=== PATIENT | female | born 1995 | race African-American/Black ===

== ENCOUNTER 2021-01-20 01:26 | Inpatient (IN) ==
[2021-01-20 02:07] LABS: Bacteria,Urine Occasional /HPF (Few); Bilirubin,Urine Negative (Negative); Blood, Urine Small mg/dL (Negative); Glucose,Urine (UA) Negative (Negative); Ketones,Urine Negative (Negative); Mucus,Urine Occasional /LPF (Occasional); Nitrite,Urine Negative (Negative); Protein,Urine Negative; RBC,Urine 32 /HPF (0-4); Squamous Epithelial Cell,Urine Occasional /HPF (0-10); Urine Appearance CLEAR (Clear); Urine Color Yellow (Yellow); Urine Specific Gravity 1.023 (1.001-1.035)
[2021-01-20] MEDS ORDERED: ACETAMINOPHEN 325 MG TABLET PO PRN ×2 (03:14→11:42)
[2021-01-20] MEDS ORDERED: LACTATED RINGERS 1,000 ML IV ONE ×2 (03:15→11:13)
[2021-01-20] MEDS ORDERED: LACTATED RINGERS 1,000 ML IV SCH ×2 (04:00→07:30)
[2021-01-20] MEDS ORDERED: MEPERIDINE 50 MG/1 ML VIAL IV PRN (07:10)
[2021-01-20] MEDS ORDERED: ONDANSETRON 4 MG/2 ML VIAL IV PRN ×2 (07:10→11:42)
[2021-01-20] MEDS ORDERED: BUTORPHANOL 2 MG/ML VIAL IV PRN (07:10)
[2021-01-20 08:16] LABS: Basophils # 0.1 10*3/uL (0.0-0.2); Basophils % 0.4 % (0.0-0.8); Eosinophils # 0.1 10*3/uL (0.0-0.87); Eosinophils % 1.1 % (0.00-10.9); Hematocrit 29.2 VOL% (35.7-47.0); Hemoglobin 9.2 GM/DL (12.0-16.0); Immature Granulocytes % 1.3 %; Immature Granulocytes Absolute 0.16 #; Lymphocytes # 2.1 10*3/uL (1.4-4.0); Lymphocytes % 17.8 % (21.3-54.2); Mean Corpuscular HGB Conc 31.5 GM/DL (32-36); Mean Corpuscular Volume 97.3 FL (87-102); Mean Platelet Volume 9.2 FL (9.6-12.0); Monocytes % 6.2 % (1.7-12.7); Neutrophils % 73.2 % (38.7-73.9); Platelet Count 283 T/CUMM (130-400); Red Cell Distribution Width 13.5 % (9.3-17.3)
[2021-01-20 08:35] LABS: Alanine Aminotransferase < 6 U/L (13-56); Albumin 2.5 G/DL (3.4-5.0); Alkaline Phosphatase 102 U/L (45-117); Aspartate Amino Transferase 11 U/L (0-37); Blood Urea Nitrogen 5 MG/DL (7-18); Calcium 8.5 MG/DL (8.5-10.1); Carbon Dioxide 22 MMOL/L (21-32); Estimated Glom Filtration Rate 198 ML/MIN; Glucose 84 MG/DL (74-106); Osmolality,Calculated 268.8 MOS/KG (273-304); Potassium 3.5 MMOL/L (3.5-5.1); Sodium 137 MMOL/L (136-145); Total Protein 6.3 G/DL (6.4-8.2)
[2021-01-20] MEDS ORDERED: ceFAZolin 2,000 MG/50 ML DUPLEX IV ONE (10:18)
[2021-01-20] MEDS ORDERED: miSOPROStoL 200 MCG TABLET ONE (10:18)
[2021-01-20] MEDS ORDERED: FAMOTIDINE 20 MG/2 ML VIAL IV ONE (10:18)
[2021-01-20] MEDS ORDERED: METHYLERGONOVINE 0.2 MG/1 ML AMP ONE (10:18)
[2021-01-20] MEDS ORDERED: CITRIC ACID/SODIUM CITRATE 30 ML UDCUP PO ONE (10:18)
[2021-01-20] MEDS ORDERED: TRANEXAMIC ACID 1,000 MG/10 ML VIAL ONE (10:18)
[2021-01-20] MEDS ORDERED: CARBOPROST TROMETHAMINE 250 MCG/ML AMP IM ONE (10:19)
[2021-01-20] MEDS ORDERED: OXYTOCIN/LR 20 UNIT/1,000 ML BAG IV ONE ×2 (10:20→11:42)
[2021-01-20] MEDS ORDERED: SODIUM CHLORIDE 0.9% 0 ML IV ONE (10:20)
[2021-01-20] MEDS ORDERED: ONDANSETRON 4 MG/2 ML VIAL ONE (10:33)
[2021-01-20] MEDS ORDERED: PHENYLEPHRINE 1 MG/10 ML SYRINGE IV ONE ×2 (10:33→11:21)
[2021-01-20] MEDS ORDERED: BUPIVACAINE SPINAL 0.75% 2 ML AMP SPINAL ONE (10:33)
[2021-01-20] MEDS ORDERED: ACETAMINOPHEN INJ 1,000 MG/100 ML VIAL IV ONE ×2 (10:33→11:25)
[2021-01-20] MEDS ORDERED: MIDAZOLAM 2 MG/2 ML VIAL ONE (11:13)
[2021-01-20 11:17] LABS: Cord Arterial Blood HCO3 22.4 MMOL/L
[2021-01-20 11:20] LABS: Cord Venous Blood HCO3 22.6 MMOL/L; Cord Venous Blood PCO2 49.1 MMHG; Cord Venous Blood PO2 18.9
[2021-01-20] MEDS ORDERED: KETOROLAC 30 MG/1 ML VIAL ONE (11:25)
[2021-01-20] MEDS ORDERED: LANOLIN 50% CREAM 0.3 OZ TUBE TOP PRN (11:42)
[2021-01-20] MEDS ORDERED: WITCH HAZEL PADS 100/JAR TOP PRN (11:42)
[2021-01-20] MEDS ORDERED: oxyCODONE/ACETAMINOPHEN 5-325 MG TABLET PO PRN (11:42)
[2021-01-20] MEDS ORDERED: HYDROCORTISONE 2.5% RECTAL CREAM 30 GM TUBE TOP PRN (11:42)
[2021-01-20] MEDS ORDERED: BISACODYL 10 MG SUPP RECTAL PRN (11:42)
[2021-01-20] MEDS ORDERED: BENZOCAINE 20%/MENTHOL 0.5% SPRAY 56 GM CAN TOP PRN (11:42)
[2021-01-20] MEDS ORDERED: MEASLES/MUMPS/RUBELLA VACCINE 0.5 ML VIAL SUBCUT ONE (11:42)
[2021-01-20] MEDS ORDERED: DIPH/TET/ACEL PERT BOOSTER VACCINE 0.5 ML VIAL IM ONE (11:42)
[2021-01-20] MEDS ORDERED: RHO(D) IMMUNE GLOBULIN 300 MCG SYRINGE IM ONE (11:42)
[2021-01-20] MEDS: KETOROLAC 30 MG/1 ML VIAL IV SCH (20:09)
[2021-01-20] MEDS: DOCUSATE SODIUM 100 MG CAPSULE PO SCH (21:11)
[2021-01-21] MEDS ORDERED: SIMETHICONE CHEW 80 MG TABLET PO PRN (00:44)
[2021-01-21 02:14] LABS: Basophils % 0.2 % (0.0-0.8); Eosinophils # 0.1 10*3/uL (0.0-0.87); Eosinophils % 0.9 % (0.00-10.9); Hematocrit 25.7 VOL% (35.7-47.0); Hemoglobin 8.1 GM/DL (12.0-16.0); Immature Granulocytes % 0.8 %; Immature Granulocytes Absolute 0.11 #; Lymphocytes % 15.3 % (21.3-54.2); Mean Corpuscular HGB Conc 31.5 GM/DL (32-36); Mean Platelet Volume 9.5 FL (9.6-12.0); Monocytes % 7.5 % (1.7-12.7); Neutrophils % 75.3 % (38.7-73.9); Platelet Count 267 T/CUMM (130-400); Red Blood Count 2.65 MC/CUMM (3.8-5.5); Red Cell Distribution Width 13.6 % (9.3-17.3); White Blood Count 13.2 T/CUMM (4-12)
[2021-01-21] MEDS: oxyCODONE/ACETAMINOPHEN 5-325 MG TABLET PO PRN ×2 (03:14→11:42)
[2021-01-21] MEDS: KETOROLAC 30 MG/1 ML VIAL IV SCH (03:15)
[2021-01-21] MEDS: MULTIVITAMIN (PRENATAL) TABLET PO SCH (09:43)
[2021-01-21] MEDS: FERROUS SULFATE 325 MG TABLET PO SCH ×2 (09:43→20:58)
[2021-01-21] MEDS: DOCUSATE SODIUM 100 MG CAPSULE PO SCH ×2 (09:44→20:59)
[2021-01-21] MEDS: MAGNESIUM HYDROXIDE SUSP 30 ML UDCUP PO SCH ×2 (11:42→20:59)
[2021-01-21] MEDS: IBUPROFEN 800 MG TABLET PO PRN ×2 (11:44→22:47)
[2021-01-22] MEDS: IBUPROFEN 800 MG TABLET PO PRN (05:28)
[2021-01-22] MEDS: DOCUSATE SODIUM 100 MG CAPSULE PO SCH (09:02)
[2021-01-22] MEDS: MULTIVITAMIN (PRENATAL) TABLET PO SCH (09:02)
[2021-01-22] MEDS: FERROUS SULFATE 325 MG TABLET PO SCH (09:02)
[2021-01-22] MEDS: MAGNESIUM HYDROXIDE SUSP 30 ML UDCUP PO SCH (09:03)
[2021-01-22 13:28] VITALS: BP 141/76
== END 2021-01-22 13:40 | disposition home or self-care (01) | DRG 540 ==
LOC: N.LDOUT 01:26 → N.LD 01:30 → N.OB 22:40
PROVIDERS: ADMIT Specialist; ATTEND Specialist
PROC: LDCSECT (ICD-10-PCS; 2021-01-20 10:30)